=== PATIENT | male | born 1945 | race Caucasian/White ===

== ENCOUNTER 2017-07-25 07:07 | Day surgery (SDC) | payer MEDICARE, BC ==
--- NOTE | 2017-07-18 08:47 | HP ---
PREOPERATIVE HISTORY AND PHYSICAL: DATE OF ADMISSION/SURGERY: 07/25/17 ATTENDING SURGEON: Eugenia Orlando MD * (DICTATED BY SANTANA LEWIS) PROCEDURE: Left long, ring trigger finger release; wrist carpal tunnel release. HISTORY OF PRESENT ILLNESS: This is a 71-year-old male, who has had complaints of difficulty closing his left hand into a tight fist and numbness and tingling in the left hand, symptoms getting worse over the past 3 months, although they have been present to different extent much longer than that. The numbness involves his middle finger and ring finger. The stiffness in his fingers mostly affects the left long and ring fingers. He denies any injury to this hand. The stiffness in his fingers is quite bothersome because he likes to play the guitar and he is unable to do so with the limited motion and the numbness and tingling in his hand awaken him often at night. He has tried bracing the wrist at night and this has helped with relieving the numbness and tingling; however, the brace becomes too uncomfortable and he cannot always wear it. He has been clinically diagnosed with carpal tunnel syndrome and trigger fingers affecting the long and ring fingers and has consented to proceed with surgical intervention for these problems. The patient has a history of a new-onset murmur back in 2017. He had a transthoracic echocardiogram on 10/25/16, which showed mild left ventricular hypertrophy and left ventricular systolic function at lower limits of normal. He has not had any cardiac events prior to or since the echocardiogram. PAST MEDICAL HISTORY: 1. Hypertension. 2. Gout. 3. History of murmur. PAST SURGICAL HISTORY: Tooth extraction. CURRENT MEDICATIONS: 1. Allopurinol 100 mg daily. 2. Fish oil daily. 3. Lisinopril and hydrochlorothiazide 20/12.5 mg daily. 4. Multivitamins daily. ALLERGIES: No known drug allergies. FAMILY MEDICAL HISTORY: Diabetes, heart disease, hypertension, stroke, and cancer. SOCIAL HISTORY: The patient is a retired electrical appliance servicer. He denies tobacco and recreational drug use. He does drink alcohol on regular occasion, usually a glass of wine with dinner. REVIEW OF SYSTEMS: General: Negative for fevers, chills, or night sweats. No known anesthesia problems. HEENT: Negative for headache, lightheadedness, or syncopal episodes. Integumentary: Negative for abrasions, lesions, or open wounds. Cardiothoracic: Negative for hypertension, chest pain, palpitations, or edema. Pulmonary: Negative for shortness of breath with exertion, chronic cough, COPD. GI: Negative for nausea, vomiting, diarrhea, constipation, or GERD. : Negative for nocturia, urinary frequency, urgency, history of UTIs, and kidney problem. Musculoskeletal: Positive for current complaint. Positive for gout. Neurological: Negative for paresthesias, numbness, history of seizure, stroke, or epilepsy. Endocrine: Negative for diabetes and thyroid issues. Hematologic: Negative for easy bruising, anemia, excessive bleeding, or history of DVT. Infectious Disease: Negative for history of MRSA, hepatitis C, or HIV. PHYSICAL EXAMINATION GENERAL: Well-developed, well-nourished, 71-year-old male, in no acute distress. VITAL SIGNS: Height 6 feet tall, weight 196 pounds. Pulse rate 74, blood pressure 128/78. HEENT: Normocephalic, atraumatic. Pupils are equal, round, and reactive to light and accommodation. Extraocular movements are intact. Throat is clear. NECK: Supple. No palpable lymph nodes. PULMONARY: Lungs are clear to auscultation bilaterally. No wheezes, rales, or rhonchi. CARDIOVASCULAR: Regular rate and rhythm. S1, and S2. Mild murmur detected with auscultation. ABDOMEN: Positive bowel sounds, soft, and nontender. MUSCULOSKELETAL: On exam of his left hand, he has marked tenderness at the A1 pulleys of both the middle and ring fingers. He cannot make a tightly closed fist. He also cannot straighten his fingers all the way. He has a positive Tinel's of the median nerve at the wrist, mild thenar wasting, and some weakness with thumb abduction. NEUROLOGICAL: Alert and oriented x3. Cranial nerves II through XII are intact. IMPRESSION: Left carpal tunnel syndrome and trigger fingers of the middle and ring fingers. PLAN: The patient is scheduled to undergo left long, ring trigger finger release and wrist carpal tunnel release with Dr. Orlando on 07/25/17. He will return to the office in 10 days postop for followup and suture removal. A prescription for Ultracet was e-scribed to the patient's pharmacy for postoperative pain management. SANTANA LEWIS [id number]/[facility] #: [id number] [facility]ITAL[facility]
[~2017-07-25 07:07] MED LIST: Buffered Lidocaine 0.9% SYRIN* 5 ML/SYR SYRINGE INTRADERM ONE
[2017-07-25] MEDS ORDERED: fentaNYL* 50 MCG/ML 2 ML VIAL (100 MCG VIAL) ONE (08:56)
[2017-07-25] MEDS ORDERED: Lidocaine 1% INJ* 10 MG/ML 30 ML SDV ONE (09:19)
[2017-07-25] MEDS ORDERED: Propofol* 10 MG/ML 20 ML BTL IV PUSH ONE (09:55)
[2017-07-25] MEDS ORDERED: Lidocaine 2% PF * 5 ML VIAL ONE (09:55)
[2017-07-25 10:39] VITALS: BP 118/72
--- NOTE | 2017-07-26 10:53 | OP ---
CC: Eugenia Orlando MD OPERATIVE REPORT: DATE OF OPERATION: 07/25/17 DATE OF : 43 SURGEON: Eugenia Orlando MD ASSEMBLY LINE UPHOLSTERER: SANTANA Hess ANESTHESIA: Local MAC. PRE-OP DIAGNOSES: Left index, long and ring finger trigger finger and left carpal tunnel syndrome. POST-OP DIAGNOSES: Left index, long and ring finger trigger finger and left carpal tunnel syndrome. OPERATIVE PROCEDURE: Left index, long and ring finger trigger release and left carpal tunnel release . ESTIMATED BLOOD LOSS: Zero. TOURNIQUET TIME: Approximately 15 minutes. INDICATION FOR PROCEDURE: Dany is a 71-year-old man who has significant difficulty making a fist a nd has numbness and tingling in the median nerve distribution of his left hand. He presents for left carpal tunnel release and trigger release of the index, ring, and middle fingers. DESCRIPTION OF PROCEDURE: The patient was brought to the operating room, was given a sedation anesth etic and a local infiltration of total of 20 cc of 1% plain lidocaine in the palm of his left hand an d the skin of his left hand and palm was prepped and draped in the usual sterile fashion. The hand a nd palm were exsanguinated and the tourniquet elevated to 250 mmHg. A transverse incision was made o verlying the A1 pulleys of the index, long, and ring fingers of the left hand. We dissected bluntly through the subcutaneous tissue down to the A1 pulleys. The digital neurovascular bundles were retrac margarita by the surveyor's assistant, Cindy Gonzalez, and then the A1 pulleys were incised longitudinally co mpletely releasing the tendon, which had significant abrasion and some tenosynovitis. The tenosynovi tis was debrided. The wound was irrigated and the skin edges reapproximated with 4-0 nylon suture. Next, a longitudinal incision was made in line with the ring finger. We dissected sharply through th e subcutaneous tissue down to the transverse carpal ligament. The ligament was divided sharply with a knife and then more proximally with the scissors. The nerve was dissected free from the surroundin g tissue and there was an area of significant compression at the midportion of the ligament and in fa ct over the whole length of the ligament. There was abundant tenosynovitis in the carpal tunnel and t his was debrided. The wound was irrigated and the skin edges reapproximated with 4-0 nylon suture. The wound was dressed with Xeroform, 4 x 4, Webril, and an Garrick wrap. The patient tolerated the proce dure well and was brought to the recovery room in good condition. [id number]/[facility] #: [id number]
== END 2017-07-25 10:41 | disposition home or self-care (01) ==
LOC: OREAST 07:07
PROVIDERS: ATTEND Orthopaedic Surgery
DX: G56.02 Carpal tunnel syndrome, left upper limb (principal); M65.322 Trigger finger, left index finger; M65.342 Trigger finger, left ring finger; M65.332 Trigger finger, left middle finger; I10 Essential (primary) hypertension; M10.9 Gout, unspecified; R01.1 Cardiac murmur, unspecified; M19.90 Unspecified osteoarthritis, unspecified site
CPT/HCPCS: 88305; J2704; J3010

== ENCOUNTER → 2018-08-09 06:53 | Day surgery (SDC) | payer MEDICARE, BC ==
[~2018-08-09 06:53] MED LIST changes: +Acetaminophen TAB* 325 MG ONE; +Acetaminophen TAB* 325 MG PO ONE; +Acetaminophen TAB* 325 MG PO PRN; -Buffered Lidocaine 0.9% SYRIN* 5 ML/SYR SYRINGE INTRADERM ONE; +Buffered Lidocaine 1% SYRIN* 1 ML/SYRINGE INTRADERM ONE; +Bupivacaine 0.5% W/EPI SDV* 30 ML VIAL ONE; +Dexamethasone IV* 4 MG/ML 1 ML (4 MG) ONE; +DiMENhydriNATE IV* 50 MG/ML VIAL IV PUSH PRN; +EPHEDrine (Pressors)* 50 MG/ML VIAL ONE; +Famotidine IV* 10 MG/ML 2 ML (20 mg) ONE; +HYDROcodone/ACETAMIN 5-325 MG* 1 TAB PO PRN; +Ketorolac INJ* 30 MG/ML 1 ML VIAL ONE; +Lactated Ringers 1000 ML Bag* 1,000 ML IV SCH; +Lidocaine 2.5%/Prilocain 2.5%* 5 GM TUBE ONE; +Midazolam* 1 MG/ML 2 ML VIAL (2 MG) ONE; +Naloxone* 0.4 MG/ML 1 ML VIAL IV PRN; +Ondansetron INJ* 2 MG/ML VIAL IV PRN; +Ondansetron INJ* 2 MG/ML VIAL ONE; +Propofol* 10 MG/ML 20 ML BTL ONE; +Rocuronium* 10 MG/ML VIAL ONE; +ceFAZolin 2 GM PREMIX in ORs 2 GM/50 ML BAG IVPB ONE; +diPHENhydraMINE IV* 50 MG/ML 1 ml VIAL (BENADRYL) IV PRN; +fentaNYL* 50 MCG/ML 2 ML VIAL (100 MCG VIAL) IV PRN; +fentaNYL* 50 MCG/ML 2 ML VIAL (100 MCG VIAL) ONE
[2018-08-09 16:22] VITALS: BP 121/83
--- NOTE | 2018-08-10 00:31 | OP ---
CC: Dr. Martinez; Dr. Jael Luna; Dr. Gibson * DATE OF OPERATION: 08/09/18 - [facility] DATE OF : 43 SURGEON: Dr. Merlos. TOOL ENGINE LATHE SET UP OPERATOR: None. ANESTHESIOLOGIST: Dr. Hall. ANESTHESIA: General anesthetic, local infiltration. PRE-OP DIAGNOSIS: Melanoma of left lower back. POST-OP DIAGNOSIS: Melanoma of left lower back. OPERATIVE PROCEDURE: Wide excision and sentinel node biopsy of melanoma of left lower back. DESCRIPTION OF PROCEDURE: The patient was supine on the operating table after adequate general anesthetic, compression stockings, Luis Alberto-Hugger warmer, and intravenous antibiotics. He was turned to the prone position. The back was prepped with antiseptic, draped in a sterile fashion. The area of the left lower back was identified at the site of the previous biopsy and then 2 cm margins were measured out from this site and this was created into an elliptical incision oriented transversely. This was approximately 5 x 10 cm. Excision was carried out full thickness down to the muscle fascia and sent in formalin with a suture marking the left lateral aspect. The flaps were created inferior and superiorly and advanced to the closure. This was done using the 0 and 3-0 Vicryl followed by alondra. Local anesthetic was administered. Sterile dressing was placed. He was then turned to the supine position. Both groins were clipped and prepped with antiseptic, draped in a sterile fashion. Local infiltrative anesthesia was administered and in each case, approximately 3 to 4 cm incision was created. This was directed by the sentinel scanner, which helped to identify the node. On the right side, there was more activity. There was a cluster of two nodes in the superficial space and these were removed. They were into the two nodes. The first node was very hot with around 1500 count. The second node was barely hot at all. Both of these were labeled as sentinel node right #1 and #2. There was a cluster of two additional nodes, which were down in the deep space along the femoral vein and these were taken out and one had a count of about 1500 and the other had a count of about 2600 and these were sentinel nodes #3 and #4 on the right. The basin count was down to almost nil and closure was accomplished using 3-0 and 5- 0 Vicryl followed by Steri-Strips. Attention was turned to the left side. Again, approximately 3-cm incision was created. In this case, a solitary superficial node was identified. This had count of around 1200 and the basin count was almost down to nil after that and closure was accomplished using 3-0 and 5-0 Vicryl followed by Steri-Strips. He tolerated the procedure well, was awakened and brought to Recovery in good condition. COMPLICATIONS: There were no complications. DRAINS: No drains. SPECIMENS: Pathologic specimens as above. COUNTS: Sponge and instrument counts correct. ESTIMATED BLOOD LOSS: 30 mL. [id number]/[facility] #: [id number] [facility]
== END | disposition home or self-care (01) ==
LOC: SDS 06:53
PROVIDERS: ATTEND Surgery
DX: C43.59 Malignant melanoma of other part of trunk (principal); I10 Essential (primary) hypertension; M10.9 Gout, unspecified; R01.1 Cardiac murmur, unspecified
CPT/HCPCS: 78195; 88305; 88307; 88341; 88342; A9270-GY; A9541; J0690; J1100; J1885; J2250; J2405; J2704; J3010